=== PATIENT | female | born 1995 | race Caucasian/White ===

== ENCOUNTER 2021-09-25 17:00 | Outpatient (CLI) | payer BC | END 2021-09-25 17:01 | disposition home or self-care (01) | LOC: SLEEPLAB 17:00 | PROVIDERS: ATTEND Family Medicine | DX: G47.33 Obstructive sleep apnea (adult) (pediatric) (principal); R53.83 Other fatigue; R06.83 Snoring; G31.84 Mild cognitive impairment of uncertain or unknown etiology; F41.9 Anxiety disorder, unspecified; F32.9 Major depressive disorder, single episode, unspecified; G47.00 Insomnia, unspecified; G47.10 Hypersomnia, unspecified | CPT/HCPCS: 95800 ==

== ENCOUNTER 2022-06-23 19:30 | Outpatient (CLI) | payer BC | END 2022-06-23 19:31 | disposition home or self-care (01) | LOC: SLEEPLAB 19:30 | PROVIDERS: ATTEND Family Medicine | DX: G47.419 Narcolepsy without cataplexy (principal); R53.83 Other fatigue; R55 Syncope and collapse; G47.53 Recurrent isolated sleep paralysis | CPT/HCPCS: 95810 ==

== ENCOUNTER 2023-04-06 12:03 | Outpatient (CLI) | payer BC ==
[2023-04-06 12:55] LABS: Hematocrit 39.9 % (34.9-44.5)
[2023-04-06 14:16] LABS: BHCG - Serum Negative (NEGATIVE); Pregs Control Background? CLEAR/WHITE (CLR/WHITE); Pregs Control Bar Appear? YES (CONTROL BAR)
== END 2023-04-06 12:04 | disposition home or self-care (01) ==
LOC: LABBT 12:03
PROVIDERS: ATTEND Specialist
DX: Z01.812 Encounter for preprocedural laboratory examination (principal); G47.30 Sleep apnea, unspecified; J35.1 Hypertrophy of tonsils; J34.3 Hypertrophy of nasal turbinates
CPT/HCPCS: 84703; 85014

== ENCOUNTER 2023-04-08 07:04 | Day surgery (SDC) | payer BC ==
[2023-04-06 12:34] VITALS: BMI 25.7
[2023-04-08] MEDS ORDERED: Ferric Subsulfate 8 ML TOPICAL SOLN ONE (09:21)
[2023-04-08] MEDS ORDERED: Ondansetron PF 4 MG/2 ML Vial ONE ×3 (09:25→11:48)
[2023-04-08] MEDS ORDERED: PROPOFOL 20 ML ONE (09:25)
[2023-04-08] MEDS ORDERED: fentaNYL PF 100 MCG/2 ML SYRINGE ONE ×3 (09:25→10:39)
[2023-04-08] MEDS ORDERED: EPINEPHrine 1 MG/ML VIAL ONE (09:25)
[2023-04-08] MEDS ORDERED: Dexamethasone 20 MG/5 ML VIAL ONE ×2 (09:25→09:36)
[2023-04-08] MEDS ORDERED: Lidocaine 1% PF 5 ML VIAL ONE ×2 (09:26→09:36)
[2023-04-08] MEDS ORDERED: Lidocaine 1% (PF) 30 ML VIAL ONE (09:26)
[2023-04-08] MEDS ORDERED: PROPOFOL 200 MG/20 ML VIAL ONE (09:36)
[2023-04-08] MEDS ORDERED: Hydrocodone-Acetamin 15 ML UDCUP ONE (11:40)
== END 2023-04-08 12:45 | disposition home or self-care (01) ==
LOC: SDC 07:04
PROVIDERS: ATTEND Specialist
PROC: 09TL8ZZ Resection of Nasal Turbinate, Via Natural or Artificial Opening Endoscopic (ICD-10-PCS; principal; 2023-04-08)
PROC: 0CTPXZZ Resection of Tonsils, External Approach (ICD-10-PCS; principal; 2023-04-08)
DX: J35.1 Hypertrophy of tonsils (principal); J34.3 Hypertrophy of nasal turbinates; G47.33 Obstructive sleep apnea (adult) (pediatric); J30.89 Other allergic rhinitis; F32.A Depression, unspecified; F41.9 Anxiety disorder, unspecified; K21.9 Gastro-esophageal reflux disease without esophagitis; Z88.0 Allergy status to penicillin; Z88.2 Allergy status to sulfonamides; Z79.899 Other long term (current) drug therapy
CPT/HCPCS: 88304; J0171; J1100; J2001; J2405; J2704